=== PATIENT | female | born 1965 | race Caucasian/White ===

== ENCOUNTER → 2018-08-03 | Day surgery (SDC) | payer OTHER ==
[~2018-08-03] MED LIST: ALBUTEROL SULFATE 2.5 MG/3 ML NEBU. NEB PRN; AMLO10TA8 PO; ATROPINE 0.5 MG/5 ML DISP.SYRIN. IV PRN; IV RINGERS SOLUTION,LACTATED 1,000 ML IV SCH; LIDOCAINE 2% PF Vial for OR 5 ML VIAL. ONE; LOSA100T14 PO; NALOXONE 0.4 MG/ML VIAL. IV PRN; ONDANSETRON PF 4 MG/2 ML VIAL. IV PRN; PROPOFOL 40 ML IV ONE; diphenhydrAMINE 50 MG/ML VIAL IV PRN
[2018-08-03 10:34] LABS: U PREG PATIENT NEGATIVE (NEG)
--- NOTE | 2018-08-03 10:36 | PDOC1 ---
History of Present Illness Reason for Visit: Colonoscopy History of Present Illness 52 yo female here for screening colonoscopy, has never had a colonoscopy. Denies any problems Chief Complaint: None Allergies: Coded Allergies: No Known Drug Allergies (Unverified , 07/28/18) Past Medical History Cardiac: HTN Pulmonary: No pertinent hx GI: No pertinent hx Heme/Onc: No pertinent hx Hepatobiliary: No pertinent hx Psych: No pertinent hx Musculoskeletal: No pertinent hx Rheumatologic: No pertinent hx Infectious disease: No pertinent hx ENT: No pertinent hx Renal/: Other (Glomerular nephritis) Endocrine: No pertinent hx Dermatology: No pertinent hx Past Surgical History: No pertinent history Family History: No pertinent hx Past Social History Smoke: No Alcohol: none Drugs: None Lives: with Family Review of Systems Review Of Systems Fourteen system , review of systems has been reviewed. See HPI for pertinent positives and negative responses, other lenz all other systems are negative, non pertinent or non contributory Medications Current Medications Lactated Ringer's 1,000 ml @ 125 mls/hr Q8H IV Last administered on 08/03/18at 10:28; Start 08/03/18 at 10:01; Stop 08/03/18 at 22:00 Ondansetron HCl (Zofran) 4 mg PRN Q6HRS PRN IV Nausea, 1st Choice; Start 08/03/18 at 10:15; Stop 08/04/18 at 10:14 Diphenhydramine HCl (Benadryl) 12.5 mg PRN Q2HR PRN IV ITCHING; Start 08/03/18 at 10:15; Stop 08/04/18 at 10:14 Albuterol Sulfate (Ventolin) 2.5 mg PRN 1X PRN NEB Shortness of Breath, Wheezing; Start 08/03/18 at 10:15; Stop 08/04/18 at 10:14 Atropine Sulfate (ATROPINE 0.5mg SYRINGE) 0.5 mg PRN Q2MIN PRN IV BRADYCARDIA; Start 08/03/18 at 10:15; Stop 08/04/18 at 10:14 Naloxone HCl (Narcan) 0.04 mg PRN Q2MIN PRN IV Respiratory Depression; Start 08/03/18 at 10:15; Stop 08/04/18 at 10:14 Propofol 40 ml @ As Directed STK-MED ONCE IV ; Start 08/03/18 at 10:08; Stop 08/03/18 at 10:09; Status DC Lidocaine HCl (Lidocaine Pf 2% Vial) 5 ml STK-MED ONCE .ROUTE ; Start 08/03/18 at 10:08; Stop 08/03/18 at 10:09; Status DC Active Scripts Active Reported Losartan Potassium 100 Mg Tablet 100 Mg PO DAILY Amlodipine Besylate 10 Mg Tablet 1 Tab PO DAILY Exam General Appearance: Alert, Oriented X3, Cooperative HEENT: Atraumatic Respiratory: Clear to auscultation Heart: Regular rate, No murmurs Abdominal: Normal bowel sounds, Soft, No tenderness Extremities: No edema Neuro: Normal speech Assessment/Plan Assessment/Plan Screening colonoscopy COURSE Allergies Coded Allergies Type Severity Reaction Last Updated Verified No Known Drug Allergies 07/28/18 No Current Medications Medications (Trade) Dose Ordered Sig/Marleny Route PRN Reason Start Time Stop Time Status Last Admin Dose Admin Lactated Ringer's 1,000 ml @ 125 mls/hr Q8H IV 08/03/18 10:01 08/03/18 22:00 08/03/18 10:28 Ondansetron HCl (Zofran) 4 mg PRN Q6HRS PRN IV Nausea, 1st Choice 08/03/18 10:15 08/04/18 10:14 Diphenhydramine HCl (Benadryl) 12.5 mg PRN Q2HR PRN IV ITCHING 08/03/18 10:15 08/04/18 10:14 Albuterol Sulfate (Ventolin) 2.5 mg PRN 1X PRN NEB Shortness of Breath, Wheezing 08/03/18 10:15 08/04/18 10:14 Atropine Sulfate (ATROPINE 0.5mg SYRINGE) 0.5 mg PRN Q2MIN PRN IV BRADYCARDIA 08/03/18 10:15 08/04/18 10:14 Naloxone HCl (Narcan) 0.04 mg PRN Q2MIN PRN IV Respiratory Depression 08/03/18 10:15 08/04/18 10:14 Propofol 40 ml @ As Directed STK-MED ONCE IV 08/03/18 10:08 08/03/18 10:09 DC Lidocaine HCl (Lidocaine Pf 2% Vial) 5 ml STK-MED ONCE .ROUTE 08/03/18 10:08 08/03/18 10:09 DC Orders Procedure Category Date Status Time Vital Signs, Per [facility] 08/03/18 In Process Protocol 10:01 Pulse Ox - [facility] 08/03/18 In Process Intermittent 10:01 Iv Ringers PHA 08/03/18 In Process Solution,Lactated (Iv 10:01 Vital Signs, Per [facility] 08/03/18 In Process Protocol 10:01 Pulse Oximetry: [facility] 08/03/18 In Process Standing Order 10:01 Cell Tender [facility] 08/03/18 In Process 10:01 Elevate Head Of Bed [facility] 08/03/18 In Process 10:01 Discharge From [facility] 08/03/18 In Process Hospital 10:01 Ondansetron Pf PHA 08/03/18 In Process (Zofran) 10:15 Diphenhydramine PHA 08/03/18 In Process (Benadryl) 10:15 Albuterol Sulfate PHA 08/03/18 In Process (Ventolin) 10:15 Atropine Sulfate PHA 08/03/18 In Process (Atropine 0.5mg 10:15 Naloxone (Narcan) PHA 08/03/18 In Process 10:15 Airway Inhalation RT 08/03/18 Logged Treatment 10:01 Test,Urine LAB 08/03/18 In Process 10:02 Propofol (Diprivan) PHA 08/03/18 Complete 10:08 Lidocaine 2% Pf Vial PHA 08/03/18 Complete For Or (Lidocaine P 10:08 BOYD LARIOS MD August 03, 2018 10:36
[2018-08-03 11:25] VITALS: BP 128/80
== END ==
LOC: SURG 09:58
PROVIDERS: ATTEND Surgery
DX: Z12.11 Encounter for screening for malignant neoplasm of colon (principal); K63.89 Other specified diseases of intestine; I10 Essential (primary) hypertension; N05.8 Unspecified nephritic syndrome with other morphologic changes; F17.200 Nicotine dependence, unspecified, uncomplicated; M19.90 Unspecified osteoarthritis, unspecified site; Z98.890 Other specified postprocedural states; Z79.899 Other long term (current) drug therapy
CPT/HCPCS: 45378; 81025; J2704; J7120; J2001